=== PATIENT | female | born 1955 | race Caucasian/White ===

== ENCOUNTER 2022-01-22 14:50 | Outpatient (CLI) | payer OTHER, SELFPAY ==
--- NOTE | 2022-01-22 15:00 | CRLHL7_ITS ---
For Patients: As a result of the Century Cures Act, medical imaging exams and procedure reports are released immediately into your electronic medical record. You may view this report before your referring provider. If you have questions, please contact your health care provider. BILATERAL SCREENING MAMMOGRAM WITH COMPUTER-AIDED DETECTION AND TOMOSYNTHESIS TECHNIQUE: CC and MLO views were obtained. These mammographic images have been obtained using full-field digital technique. These mammographic images were interpreted with the benefit of computer-aided detection. Breast tomosynthesis was used in this interpretation. COMPARISON FILM: 02/06/21, 01/14/20, 01/06/19. FINDINGS: The breasts are almost entirely fatty. IMPRESSION: There is no radiographic evidence for malignancy. ASSESSMENT: BI-RADS Category 2: Benign RECOMMENDATION: Routine screening mammogram in 1 year. A lay language report of this examination will be provided to the patient. SCOTT BEAVERS M.D. Diagnostic Radiologist [email or web address] Transcribed: 3:[address]/Dictated by: Scott Beavers MD @ 01/23/2022 12:46:00 PM (Electronically Signed)
== END 2022-01-22 14:51 | disposition home or self-care (01) ==
LOC: MAMMO 14:52
PROVIDERS: PCP Family Medicine; Visit Provider Family Medicine
DX: Z12.31 Encounter for screening mammogram for malignant neoplasm of breast (principal)
CPT/HCPCS: 77063; 77067

== ENCOUNTER 2023-03-22 10:04 | Outpatient (CLI) | payer OTHER, SELFPAY ==
--- NOTE | 2023-03-22 10:15 | CRLHL7_ITS ---
For Patients: As a result of the Century Cures Act, medical imaging exams and procedure reports are released immediately into your electronic medical record. You may view this report before your referring provider. If you have questions, please contact your health care provider. BILATERAL SCREENING MAMMOGRAM WITH COMPUTER-AIDED DETECTION AND TOMOSYNTHESIS TECHNIQUE: CC and MLO views were obtained. These mammographic images have been obtained using full-field digital technique. These mammographic images were interpreted with the benefit of computer-aided detection. Breast Tomosynthesis was used in this interpretation. COMPARISON FILM: 01/22/2022, 02/06/2021, 01/14/2020. FINDINGS: There are scattered areas of fibroglandular density. IMPRESSION: There is no radiographic evidence for malignancy. ASSESSMENT: BI-RADS Category 1: Negative RECOMMENDATION: Routine screening mammogram in 1 year. A lay language report of this examination will be provided to the patient. Scott Hodge M.D. Diagnostic Radiologist [email or web address] SP/Dictated by: Scott Hodge MD @ 03/22/2023 12:38:00 PM (Electronically Signed)
== END 2023-03-22 10:05 | disposition home or self-care (01) ==
LOC: MAMMO 10:05
PROVIDERS: PCP Family Medicine; Visit Provider Family Medicine
DX: Z12.31 Encounter for screening mammogram for malignant neoplasm of breast (principal)
CPT/HCPCS: 77063; 77067

== ENCOUNTER 2023-09-15 12:05 | Emergency (ER) | payer OTHER, SELFPAY ==
[2023-09-15 12:13] VITALS: BP 119/77; PULSE 71; RESP 18; TEMP 36.5; O2SAT 99; BMI 29.8
--- NOTE | 2023-09-15 13:16 | ED.GENADULT ---
HPI - General Adult General Date Seen: 09/15/23 Chief complaint: Unspecified Complaint, Adult Stated complaint: Needs rabies vaccination Time Seen by Provider: 09/15/23 12:24 Source: patient Mode of arrival: ambulatory Limitations: no limitations History of Present Illness HPI narrative: Patient is a 68-year-old woman who says on Saturday, 6 days ago, she had gone to lower the blinds in her room and something flew out from under the blinds. She did not get a good look at it and she isn't sure what it was, but retrospectively she thinks it might have been a bat. She did not see it after that. She did sleep at the apartment on Saturday night and then left town on Saturday and has not really been back since then. Initially did not think too much of it but then started reading and feels she should probably be protected against rabies. She does have a little scratch on her hand she is not sure how she got that. No other injuries or complaints. Related Data Home Medications ?Medication ?Instructions ?Recorded ?Confirmed No Known Home Medications 09/15/23 09/15/23 Allergies Allergy/AdvReac Type Severity Reaction Status Date / Time No Known Drug Allergies Allergy Verified 09/15/23 12:17 [facility] Social History Smoking Status: Never smoker How often do you have a drink containing alcohol: 2-4 times a month How many standard drinks containing alcohol do you have on a typical day: 3 or 4 AUDIT-C Alcohol total score: 3 Non-prescribed substance use: denies use Exam Narrative: Exam Narrative: Vital signs reviewed In general, alert, well-appearing woman. Const: Vital Signs, click to edit/add: Vital Signs - 24 hr 09/15/23 12:13 Temperature 97.7 F Pulse Rate [Right Pulse Oximeter] 71 Respiratory Rate 18 Blood Pressure [Ri ght Upper Arm] 119/77 Pulse Oximetry 99 Oxygen Delivery Me thod Room Air Documenting provider has reviewed patient's vital signs: yes Course Course ED Course: I do not think it is unreasonable to vaccinated for rabies. Scratch in the hand is unlikely to be related to a bat bite, but will go ahead and give her immune globulin as well as her initial vaccine today and schedule her for the remainder of her vaccinations. Vital Signs Vital signs: Initial Vital Signs Temperature 97.7 F 09/15/23 12:13 Temperature Source Temporal Artery Scan 09/15/23 12:13 Pulse Rate 71 09/15/23 12:13 Respiratory Rate 18 09/15/23 12:13 Blood Pressure 119/77 09/15/23 12:13 Blood Pressure Mean 91 09/15/23 12:13 Blood Pressure Position Sitting 09/15/23 12:13 Pulse Oximetry 99 09/15/23 12:13 Oxygen Delivery Method Room Air 09/15/23 12:13 Vital Signs Temperature 97.7 F 09/15/23 12:13 Pulse Rate 71 09/15/23 12:13 Respiratory Rate 18 09/15/23 12:13 Blood Pressure 119/77 09/15/23 12:13 Pulse Oximetry 99 09/15/23 12:13 Oxygen Delivery Method Room Air 09/15/23 12:13 Temperature 97.7 F 09/15/23 12:13 Pulse Rate 71 09/15/23 12:13 Respiratory Rate 18 09/15/23 12:13 Blood Pressure 119/77 09/15/23 12:13 Pulse Oximetry 99 09/15/23 12:13 Oxygen Delivery Method Room Air 09/15/23 12:13 Medications Administered Medications: Discontinued Medications Generic Name Dose Route Start Last Admin Trade Name Freq PRN Reason Stop Dose Admin Rabies Immune Globulin 1,485 unit 09/15/23 12:47 09/15/23 13:26 Rabies Immune Globulin 150 Unit/Ml Inj 20 unit/kg (1485 unit) 09/15/23 12:48 1,485 unit INFILTRATI Administration ONCE ONE Rabies Vaccine 2.5 unit 09/15/23 12:47 09/15/23 13:25 Rabies Vaccine 2.5 Unit IM 09/15/23 12:48 2.5 unit .ONCE ONE Administration Discharge Plan Discharge Clinical Impression: Exposure to bat without known bite Patient Disposition: Home, Self-Care Condition: Stable Additional Instructions: Return for remainder of rabies series as discussed. Prescriptions: No Action No Known Home Medications Follow Up/Referrals: Anuradha Shin MD [Primary Care Provider] - Stand Alone Forms: My[facility] Info Instructions
[2023-09-15] MEDS: RABIES IMMUNE GLOBULIN 150 UNIT/ML INJ 1485 UNIT INFILTRATI (13:26)
== END 2023-09-15 13:37 | disposition home or self-care (01) ==
PROVIDERS: Emergency Provider Emergency Medicine; PCP Family Medicine
DX: Z20.3 Contact with and (suspected) exposure to rabies (principal)
CPT/HCPCS: 90377; 90675; 96372; 99283

== ENCOUNTER 2024-05-11 11:27 | Outpatient (CLI) | payer OTHER, SELFPAY ==
--- NOTE | 2024-05-11 11:30 | CRLHL7_ITS ---
For Patients: As a result of the Cures Act, medical imaging exams and procedure reports are released immediately into your electronic medical record. You may view this report before your referring provider. If you have questions, please contact your health care provider. BILATERAL SCREENING MAMMOGRAM WITH COMPUTER-AIDED DETECTION AND TOMOSYNTHESIS TECHNIQUE: CC and MLO views were obtained. These mammographic images have been obtained using full-field digital technique. These mammographic images were interpreted with the benefit of computer-aided detection. Breast Tomosynthesis was used in this interpretation. COMPARISON FILM: 03/22/23, 01/22/22, 02/06/21. FINDINGS: There are scattered areas of fibroglandular density IMPRESSION: There is no radiographic evidence for malignancy. ASSESSMENT: BI-RADS Category 1: Negative RECOMMENDATION: Routine screening mammogram in 1 year. A lay language report of this examination will be provided to the patient. Scott Hodge M.D. Diagnostic Radiologist [email or web address] SANDER/[email or web address] Transcribed: 3:16 p.jan jolly/Dictated by: Scott Hodge MD @ 05/12/2024 8:27:00 AM (Electronically Signed)
== END 2024-05-11 11:28 | disposition home or self-care (01) ==
LOC: MAMMO 11:28
PROVIDERS: PCP Family Medicine; Visit Provider Family Medicine
DX: Z12.31 Encounter for screening mammogram for malignant neoplasm of breast (principal)
CPT/HCPCS: 77063; 77067